=== PATIENT | female | born 1985 | race Caucasian/White ===

== ENCOUNTER 2018-12-11 15:14 | Outpatient (CLI) | payer OTHER ==
[~2018-12-11] VITALS: Ht 160 cm; Wt 71.8 kg
[2018-12-11 16:39] LABS: MICROSCOPIC INDICATED
[2018-12-11 16:40] LABS: CULTURE INDICATED? YES
[2018-12-11] MEDS ORDERED: SERT100T PO (17:46)
[2018-12-11] MEDS ORDERED: VALA500T PO (17:46)
[2018-12-11] MEDS ORDERED: PREN-53 PO (17:47)
== END 2018-12-11 18:08 | disposition home or self-care (01) ==
LOC: LDOP 15:14
PROVIDERS: ATTEND Obstetrics & Gynecology
DX: O09.513 Supervision of elderly primigravida, third trimester (principal); O26.893 Other specified pregnancy related conditions, third trimester; M54.9 Dorsalgia, unspecified; R07.81 Pleurodynia; Z3A.33 33 weeks gestation of pregnancy
CPT/HCPCS: 59025; 81001; 87086; 99201; G0463

== ENCOUNTER 2018-12-15 21:08 | Outpatient (CLI) | payer OTHER ==
[~2018-12-15] VITALS: Ht 160 cm; Wt 71.8 kg
[~2018-12-15 21:08] MED LIST: PREN-53 PO; SERT100T PO; VALA500T PO
[2018-12-15 21:40] LABS: MICROSCOPIC INDICATED
== END 2018-12-15 22:34 | disposition home or self-care (01) ==
LOC: LDOP 21:08
PROVIDERS: ATTEND Obstetrics & Gynecology
DX: O09.523 Supervision of elderly multigravida, third trimester (principal); O62.9 Abnormality of forces of labor, unspecified; Z3A.33 33 weeks gestation of pregnancy
CPT/HCPCS: 59025; 81001; 87086; 99211; G0463

== ENCOUNTER 2020-05-10 18:35 | Inpatient (IN) | payer OTHER ==
[~2020-05-10] VITALS: Ht 160 cm; Wt 72.7 kg
[~2020-05-10 18:35] MED LIST changes: +IBUP-1222 PO; +OXYC-302 PO; -VALA500T PO; +VALA500T8 PO
[2020-05-10 19:14] VITALS: BP 107/61
[2020-05-10] MEDS ORDERED: RHOGAM FROM BLOOD BANK 1 NOTE EA IM/IV PRN (19:30)
[2020-05-10] MEDS ORDERED: FENTANYL PF 100 MCG/2ML IVPush PRN (19:30)
[2020-05-10] MEDS ORDERED: MISOPROSTOL 200 MCG TABLET PO SCH (19:30)
[2020-05-10] MEDS ORDERED: LACTATED RINGERS 1,000 ML IV SCH (19:30)
[2020-05-10] MEDS ORDERED: OXYTOCIN 30U/ 0.9% NaCL 500ML 500 ML IV PRN (19:30)
[2020-05-10] MEDS ORDERED: ONDANSETRON 2MG/ML, 2ML IVPush PRN (19:30)
[2020-05-10] MEDS ORDERED: OXYTOCIN 30U/ 0.9% NaCL 500ML 500 ML IV ONE (19:30)
[2020-05-10] MEDS ORDERED: MISOPROSTOL 200 MCG TABLET ONE ×2 (19:34→21:07)
[2020-05-10 20:04] LABS: BASOPHILS % (AUTO) 1 % (0-1); EOSINOPHILS % (AUTO) 1 % (1-7); LYMPHOCYTES % (AUTO) 20 % (22-44); MEAN CORPUSCULAR HEMOGLOBIN 31.5 pg (27.0-34.8); MEAN CORPUSCULAR HGB CONC 33.6 g/dL (32.4-35.8); MEAN PLATELET VOLUME 10.1 fL (7.4-10.4); MONOCYTES % (AUTO) 6 % (2-9); NEUTROPHILS % (AUTO) 73 % (42-75); PLATELET COUNT 195 x10^3/uL (130-400); RED BLOOD COUNT 3.88 x10^6/uL (3.82-5.3); RED CELL DISTRIBUTION WIDTH 13.5 % (9.6-15.2)
[2020-05-10 20:06] LABS: MD NO
[2020-05-10] MEDS ORDERED: OXYTOCIN 30U/ 0.9% NaCL 500ML 500 ML ONE (21:07)
[2020-05-11] MEDS ORDERED: FENTANYL PF 100 MCG/2ML ONE ×2 (04:37→05:31)
[2020-05-11] MEDS: FENTANYL PF 100 MCG/2ML IVPush PRN ×2 (04:40→05:32)
[2020-05-11] MEDS ORDERED: LORazepam 2 MG/ML, 1ML ONE (05:46)
[2020-05-11] MEDS ORDERED: LORazepam 2 MG/ML, 1ML IVPush ONE (06:00)
[2020-05-11] MEDS ORDERED: ONDANSETRON 2MG/ML, 2ML ONE (06:57)
[2020-05-11] MEDS ORDERED: MISOPROSTOL 200 MCG TABLET PR PRN (08:30)
[2020-05-11] MEDS ORDERED: METHYLERGONOVINE 0.2 MG/ML IM PRN (08:30)
[2020-05-11] MEDS ORDERED: OXYTOCIN 30U/ 0.9% NaCL 500ML 500 ML IV SCH (08:30)
[2020-05-11] MEDS ORDERED: IBUPROFEN 800 MG TABLET PO PRN (08:30)
[2020-05-11] MEDS ORDERED: SIMETHICONE 80 MG CHEW TAB PO PRN (08:30)
[2020-05-11] MEDS ORDERED: OXYcodone/APAP 5/325MG TABLET PO PRN ×2 (08:30)
[2020-05-11] MEDS ORDERED: CARBOPROST TROMETHAMINE 250 MCG/ML, 1ML IM PRN (08:30)
[2020-05-11] MEDS ORDERED: HYDROcodone/APAP 5/325 TABLET PO PRN ×2 (08:30)
[2020-05-11] MEDS ORDERED: ACETAMINOPHEN 325 MG TABLET PO PRN (08:30)
[2020-05-11] MEDS ORDERED: OXYcodone IR 5MG TABLET PO PRN ×2 (08:30)
[2020-05-11] MEDS ORDERED: DOCUSATE 100 MG CAPSULE PO PRN (08:30)
[2020-05-11] MEDS ORDERED: IBUPROFEN 600 MG TABLET PO PRN (08:30)
[2020-05-11] MEDS ORDERED: ONDANSETRON 2MG/ML, 2ML IV PRN (08:30)
[2020-05-11] MEDS ORDERED: PRENATAL VIT/IRON/FA 1 EACH TABLET PO SCH (09:00)
== END 2020-05-11 14:10 | disposition home or self-care (01) | DRG 779 ==
LOC: LDIP 18:35
PROVIDERS: ADMIT Obstetrics & Gynecology; ATTEND Obstetrics & Gynecology
PROC: 10A07ZX Abortion of Products of Conception, Abortifacient, Via Natural or Artificial Opening (ICD-10-PCS; principal; 2020-05-11)
DX: Z33.2 Encounter for elective termination of pregnancy (principal); O35.9XX0 Maternal care for (suspected) fetal abnormality and damage, unspecified, not applicable or unspecified; Z3A.19 19 weeks gestation of pregnancy
CPT/HCPCS: 36415; 85025; 86850; 86900; 88300; 88305; G0378; J2405; J3010; J7120

== ENCOUNTER → 2020-06-13 | Outpatient (CLI) | payer OTHER | END | disposition home or self-care (01) | LOC: STAR 15:47 | PROVIDERS: ATTEND Obstetrics & Gynecology | DX: Z20.828 Contact with and (suspected) exposure to other viral communicable diseases (principal) | CPT/HCPCS: 87635 ==

== ENCOUNTER 2021-03-05 10:32 | Emergency (ER) | payer OTHER ==
[~2021-03-05] VITALS: Ht 160 cm; Wt 80.4 kg
[~2021-03-05 10:32] MED LIST changes: -OXYC-302 PO; +OXYC1TAB12 PO
--- NOTE | 2021-03-05 11:06 | NUR ---
PATIENT WALKED BACK FROM TRIAGE WITH CHIEF C/O COUGH, SOB AND CHEST TIGHTNESS X3 DAYS. COUGH HAS GOTTEN WORSE. PATIENT REFERRED BY OBGYN. KARLAN, CONNECTED TO MONITOR, VSS, CALL LIGHT WITHIN REACH.
--- NOTE | 2021-03-05 11:26 | NUR ---
ERMD AT BEDSIDE FOR EVALUATION.
--- NOTE | 2021-03-05 11:30 | NUR ---
L&D CALLED AND NOTIFIED ABOUT PATIENT.
[2021-03-05] MEDS ORDERED: ACETAMINOPHEN 325 MG TABLET ONE (11:55)
[2021-03-05 12:00] VITALS: BP 107/71
[2021-03-05] MEDS ORDERED: ACETAMINOPHEN 325 MG TABLET PO ONE (12:00)
[2021-03-05] MEDS ORDERED: ALBUTEROL HFA 90 MCG/SPRAY INH ONE (12:00)
--- NOTE | 2021-03-05 12:01 | NUR ---
VENTOLIN INHALER REQUESTED FROM PHARMACY, PATIENT MEDICATED WITH TYLENOL, CONNECTED TO MONITOR, VSS, CALL LIGHT WITHIN REACH.
--- NOTE | 2021-03-05 12:02 | NUR ---
L&D AT BEDSIDE TO LISTEN TO HEART TONES.
--- NOTE | 2021-03-05 12:13 | NUR ---
ERMD AT BEDSIDE TO DISCUSS POC.
--- NOTE | 2021-03-05 12:51 | NUR ---
Patient given discharge instructions and they have confirmed that they understand the instructions. Patient ambulatory with steady gait. NAD, all questions answered appropriately, denies additional needs at this time. No personal belongings left in room after discharge.
== END 2021-03-05 12:52 | disposition home or self-care (01) ==
LOC: ED 12:00
DX: B34.9 Viral infection, unspecified (principal); Z20.822 Contact with and (suspected) exposure to COVID-19
CPT/HCPCS: 71045; 87081; 87880; 94640; 99284; U0003; U0005